=== PATIENT | male | born 1945 | race Caucasian/White ===

== ENCOUNTER 2018-09-22 07:54 | Day surgery (SDC) | payer MEDICARE, OTHER ==
[~2018-09-22] VITALS: Ht 182.9 cm; Wt 84.1 kg
[~2018-09-22 07:54] MED LIST: ATOR20; Aspirin EC81 MG; K-Dur20 MEQ; METF500C; METO50ER; QVAR REDIHALE10.6 G1; TAMS.4ER
--- NOTE | 2018-09-22 09:11 | NUR ---
09/22/18 0911 Lynda Mckenzie PT. VERBALIZES BEING WARM ENOUGH, CALL LIGHT IS WITHIN REACH & AT HIS SIDE. PT. INSTRUCTED TO CALL IF NEEDED ANYTHING.
--- NOTE | 2018-09-22 09:50 | NUR ---
09/22/18 0950 Lynda Mckenzie USED DURING PROCEDURE.
== END 2018-09-22 10:16 | disposition home or self-care (01) ==
LOC: ORSCSDS 07:54
PROVIDERS: Internal Medicine Gastroenterology
PROC: 0DBL8ZX Excision of Transverse Colon, Via Natural or Artificial Opening Endoscopic, Diagnostic (ICD-10-PCS; principal; 2018-09-22 09:30)
PROC: 0DBK8ZX Excision of Ascending Colon, Via Natural or Artificial Opening Endoscopic, Diagnostic (ICD-10-PCS; principal; 2018-09-22 09:30)
DX: Z12.11 Encounter for screening for malignant neoplasm of colon (principal); D12.2 Benign neoplasm of ascending colon; D12.3 Benign neoplasm of transverse colon; K64.1 Second degree hemorrhoids; K57.30 Diverticulosis of large intestine without perforation or abscess without bleeding; Z86.010 Personal history of colon polyps; I10 Essential (primary) hypertension; Z87.891 Personal history of nicotine dependence; I25.10 Atherosclerotic heart disease of native coronary artery without angina pectoris; E78.2 Mixed hyperlipidemia; E11.9 Type 2 diabetes mellitus without complications; Z79.82 Long term (current) use of aspirin; Z79.84 Long term (current) use of oral hypoglycemic drugs; Z79.899 Other long term (current) drug therapy
CPT/HCPCS: 82947; 88305; J7120